=== PATIENT | female | born 1950 | race Caucasian/White ===

== ENCOUNTER 2021-09-03 18:14 | Emergency (ER) | payer MEDICARE, SELFPAY ==
[2021-09-03 18:49] VITALS: BP 168/102; PULSE 105; RESP 16; TEMP 36.9; O2SAT 97; BMI 27.4
[2021-09-03 18:49] LABS: UTC Strep Screen (Rapid) Negative (Negative)
--- NOTE | 2021-09-03 18:51 | HMH.EDUTC ---
[facility] [place] Clinical Impression: Contact dermatitis Qualifiers: Contact dermatitis trigger: unspecified trigger Disposition: Home, Self-Care Condition on Discharge: Good Instructions: DI for Contact Dermatitis, Methylprednisolone Injection Additional Instructions: Try to identify and avoid contact with the offending substance. Don't start the oral steroids until tomorrow. Don't put the topical steroids (triamcinolone) on your face or your groin. Follow up with your regular doctor. GO TO THE ER FOR ANY WORSENING SYMPTOMS OR CONCERNS Prescriptions: methylPREDNISolone [Medrol] 4 mg PO DIRECTED 6 Days #21 packet Transmission Status: Received by [id number] Triamcinolone Acetonide 1 applicatio TP TIDP PRN 7 Days #1 gm PRN Reason: Itching Transmission Status: Received by [id number] Referrals: Provider,Referral, [Primary Care Provider] - Time of Disposition: 19:11 Medical Decision Making - Medical Records Medical records reviewed: No: I reviewed the patient's medical records. - Amor Inquiry Pt receiving controlled substance: No Vital Signs: 09/03/21 18:49 09/03/21 19:13 Temperature 98.5 F 98.5 F Temperature Source Oral Pulse Rate 105 H Pulse Rate [Left] 105 H Respiratory Rate 16 16 Blood Pressure 168/102 H Blood Pressure [Right Arm] 168/102 H Blood Pressure Mean [Right Arm] 124 02 Sat by Pulse Oximetry 97 - Lab Data Lab Results 09/03/21 18:40: Strep Scn [facility] Negative Orders (Tests/Meds): ED MEDICATIONS Discontinued Medications Generic Name Dose Route Start Last Admin Trade Name Freq PRN Reason Stop Dose Admin Methylprednisolone Sodium Succinate 125 mg 09/03/21 18:59 09/03/21 19:05 Methylprednisolone Sod Succ 125mg Vial IM 09/03/21 19:00 125 mg ONCE ONE Administration ORDERS Category Date Time Status Strep Screen Confirmation Stat Micro 09/03/21 18:40 Received [facility] [place] - General Stated complaint: RASH ALL OVER BODY Time Seen by Provider: 09/03/21 18:51 - History of Present Illness Provider Complaint: She states that she has had a rash on her body for the past 2 days. She cannot identify any thing that she has came into contact with that she is allergic to. She denies any fever or chills. - Related Data Previous Rx's Medication Instructions Recorded Triamcinolone Acetonide 1 applicatio TP TIDP PRN 7 Days #1 09/03/21 gm methylPREDNISolone [Medrol] 4 mg PO DIRECTED 6 Days #21 09/03/21 packet Allergies Allergy/AdvReac Type Severity Reaction Status Date / Time aspirin Allergy Verified 09/03/21 18:56 [facility] History - Hepatitis A Screen Attestation statement:: This patient has been screened for Hepatitis A risk factors. I have reviewed the patient's past medical history: Yes ROS Obtained: Yes All systems reviewed & no additional complaints - Constitutional Constitutional: Denies chills, Denies fever(s) - Musculoskeletal Musculoskeletal: Denies joint pain - Integumentary/Breasts Skin/Breast: Reports as per HPI - Neurologic Neurologic: Denies tingling/numbness/burning sensations Physical Exam - General General appearance: alert, in no apparent distress - Head Head exam: atraumatic, normocephalic, normal inspection - Eye Eye exam: Present: normal appearance, PERRL, EOMI - ENT ENT exam: Present: normal exam, normal oropharynx, mucous membranes moist, TM's normal bilaterally, normal external ear exam - Neck Neck exam: Present: normal inspection, full ROM, trachea midline. Absent: meningismus, lymphadenopathy - Chest Chest inspection: Present: normal inspection, symmetric chest wall rise. Absent: tenderness - Respiratory Respiratory exam: Present: normal lung sounds bilaterally. Absent: respiratory distress - Cardiovascular Cardiovascular exam: Present: regular rate, normal rhythm. Absent: JVD - Abdominal Exam Abdominal exam: Present: sof
[2021-09-03 19:13] VITALS: BP 168/102; PULSE 105; RESP 16; TEMP 36.9
== END 2021-09-03 19:17 | disposition home or self-care (01) ==
PROVIDERS: Emergency Provider Nurse Practitioner Family
DX: L30.9 Dermatitis, unspecified (principal)
CPT/HCPCS: 87880; 96372; 99212; G0463